=== PATIENT | male | born 1990 | race Caucasian/White ===

== ENCOUNTER → 2017-09-16 | Outpatient (CLI) | payer BC ==
--- NOTE | 2017-09-16 13:59 | CT ---
EXAMINATION TYPE: CT soft tissue neck w con DATE OF EXAM: 09/16/2017 1:43 PM COMPARISON: NONE HISTORY: Sore throat CT DLP: 485.1 mGycm Automated exposure control for dose reduction was used. CONTRAST: CT scan of the neck is performed following with IV Contrast, patient injected with 100 mL of Isovue 3 00. Axial images are obtained, coronal and sagittal reformatted images are reviewed. FINDINGS: Airway: The palatine tonsils show bilateral prominence, heterogeneous density compatible with edema. Parotid/submandibular glands: No gross abnormality seen. Carotid/Vascular Structures: Patent. Osseous Structures: Intact, normal mineralization Other: There is bilateral cervical adenopathy especially at the level of the jugulodigastric nodes. S kull base is normal. IMPRESSION: Correlate for tonsillitis. Bilateral adenopathy, follow-up recommended.
== END | disposition home or self-care (01) ==
LOC: RADCTMAIN 12:48
PROVIDERS: ATTEND Nurse Practitioner Adult Health
DX: R59.0 Localized enlarged lymph nodes (principal)
CPT/HCPCS: 70491; Q9967